=== PATIENT | male | born 1970 ===

== ENCOUNTER → 2018-07-24 | Emergency (ER) | payer OTHER ==
[~2018-07-24] VITALS: Ht 182.9 cm; Wt 93.0 kg
[~2018-07-24] MED LIST: IBUPROFEN800 MG PO; METFORMIN HCL500 MG PO; SEPTRA DS TABLE1 TAB PO
== END | disposition left against medical advice (07) ==
LOC: ER 23:19
DX: Z53.20 Procedure and treatment not carried out because of patient's decision for unspecified reasons (principal)